=== PATIENT | female | born 1995 | race Caucasian/White ===

== ENCOUNTER 2017-06-14 20:35 | Emergency (ER) | payer BC ==
[2017-06-14 20:41] VITALS: BP 116/77; PULSE 80; RESP 18; TEMP 97.5; O2SAT 97
--- NOTE | 2017-06-14 20:51 | EDPHY ---
H & P Time Seen by Provider: 06/14/17 20:42 HPI/ROS: CHIEF COMPLAINT: Laceration right hand HISTORY OF PRESENT ILLNESS: 22-year-old female presents to the emergency department laceration to her right hand. Patient was at home just prior to arrival and was cleaning the inside of a glass out and the glass broke and she cut her right hand. She believes her tetanus shot is current. She complains of isolated pain to the medial aspect of her right hand. Her right 5th finger feels slightly "tingly". ROS: Denies retained foreign body, injury to the other fingers, pain in her right wrist. Past Medical/Surgical History: Negative Social History: Single Smoking Status: Never smoked Physical Exam: On examination patient has a 3 cm flap laceration to the medial aspect of her right palm. No evidence of tendon injury. No evidence of retained foreign body. Normal sensation to light touch with normal 2 point discrimination. Full flexion extension of her fingers. Strong radial pulse at the right wrist. Slow active bleeding noted. Constitutional: Initial Vital Signs Temperature (C) 36.4 C 06/14/17 20:39 Heart Rate 80 06/14/17 20:39 Respiratory Rate 18 06/14/17 20:39 Blood Pressure 116/77 06/14/17 20:39 O2 Sat (%) 97 06/14/17 20:39 O2 Delivery Mode Room Air Allergies/Adverse Reactions: No Known Allergies Allergy (Unverified 06/14/17 20:41) Home Medications: Medication Instructions Recorded NK [No Known Home Meds] 06/14/17 MDM/Departure - MDM Procedures: Laceration repair. Verbal consent was obtained from the patient. The 3 cm laceration on the right hand was anesthetized using 1% lidocaine with epinephrine. The wound was irrigated with saline, draped and explored to its base with a gloved finger. There were no deep structures involved. No tendon injury was identified. The wound was repaired with 5 0 Ethilon, 8 sutures. The wound repair was simple. The procedure was performed by myself. ED Course/Re-evaluation: 22-year-old female presents with laceration to her right hand. Wound was repaired, see procedure note. Tetanus shot is current. She was given wound care precautions. - Depart Disposition: Home, Routine, Self-Care Clinical Impression: Laceration of right hand Qualifiers: Encounter type: initial encounter Foreign body presence: without foreign body Qualified Code(s): S61.411A - Laceration without foreign body of right hand, initial encounter Condition: Good Instructions: Care For Your Stitches (ED), Laceration (ED), Acute Wounds (ED) Additional Instructions: Wound Care Follow-Up: Removal of sutures in 5 days. Suture removal is complimentary in uncomplicated cases. Infection or abnormal findings would require reevaluation by the MD. In that case, you may be billed. Ibuprofen 600 mg every 8 hr as needed for pain. Return to the emergency department if you developed any signs or symptoms of infection or any other concerns. Referrals: Kathy Leonard MD [Medical Doctor] - 2-3 days, if not improved (Primary care provider budget consultant)
== END 2017-06-14 21:31 | disposition home or self-care (01) ==
PROC: 0HQFXZZ Repair Right Hand Skin, External Approach (ICD-10-PCS; principal; 2017-06-14)
DX: S61.411A Laceration without foreign body of right hand, initial encounter (principal); W25.XXXA Contact with sharp glass, initial encounter; Y92.009 Unspecified place in unspecified non-institutional (private) residence as the place of occurrence of the external cause; Y93.G1 Activity, food preparation and clean up

== ENCOUNTER 2017-07-14 11:07 | Emergency (ER) | payer BC ==
[2017-07-14 11:14] VITALS: RESP 16
[2017-07-14] MEDS ORDERED: PROPARACAINE 0.5% 15 ML OPHT DROP OP ONE (13:33)
[2017-07-14] MEDS ORDERED: FLUORESCEIN SODIUM 1 MG STRIP OP ONE (13:34)
--- NOTE | 2017-07-14 13:48 | EDPHY ---
H & P Stated Complaint: l eye redness/pupil dilated Time Seen by Provider: 07/14/17 13:47 HPI/ROS: HPI: This is a 22-year-old female who presents with Chief Complaint: Left pupil dilatation Location: Left pupil Quality: Dilated Duration: This morning Signs and Symptoms: No decreased vision, no visual floaters, no headache, no injury, no eye pain, + redness Timing: Sudden Severity: Mild Context: Patient has not had an eye exam in several years presents with waking up this morning with left eye redness. She went to the store and purchase Opcon- A [id number] eyedrops for antihistamine and eye redness relief. She noted that her left pupil was more dilated than her right people. She went to urgent care who treated her for pinkeye in the left eye approximately 1 month ago with antibiotic drops. The drops resolved the problem. Today she went back to urgent care and due to the unequal pupils was sent to the emergency room for further evaluation. Patient drove herself to the emergency room. Denies vision changes/ocular pain/ocular discharge/weakness/paresthesias. Patient does not wear contact lens or glasses. Modifying Factors: None Comment: ROS: see HPI Constitutional: No fever, no chills, no weight loss Eyes: No blurred vision Respiratory: No shortness of breath, no cough Cardiovascular: No chest pain Gastrointestinal: No nausea, no vomiting, no diarrhea Genitourinary: No dysuria Extremities: No myalgias Neurologic: No weakness, no numbness Skin: No rashes Hematologic: No bruising, no bleeding MEDICAL/SURGICAL/SOCIAL HISTORY: Medical history: Generally healthy. Does not take any regular medications. Surgical history: Denies Social history: Employed locally General: Visual Acuity: noted from Nurse's notes. Pupils: Left pupil approximately 1 mm larger than right pupil and both equally reactive to light. EOMI. Lids: no edema or swelling Skin: no proptosis, no periorbital erythema or swelling, no vesicles Conjunctivae: Left eye is mildly injected, no discharge Cornea: exam with fluorescein shows shows no uptake Anterior chamber: normal, no hyphema or hypopyon Neuro: Cranial nerves 2-12 grossly intact. Speech clear. No focal deficits. Source: Patient Exam Limitations: No limitations - Personal History LMP (Females 10-55): IUD In Place Current Tetanus/Diphtheria Vaccine: Yes - Medical/Surgical History Hx Asthma: No Hx Chronic Respiratory Disease: No Hx Diabetes: No Hx Cardiac Disease: No Hx Renal Disease: No Hx Cirrhosis: No Hx Alcoholism: No Hx HIV/AIDS: No Hx Splenectomy or Spleen Trauma: No Other PMH: denies - Social History Smoking Status: Never smoked Constitutional: Initial Vital Signs Temperature (C) 36.6 C 07/14/17 11:13 Heart Rate 65 07/14/17 11:13 Respiratory Rate 16 07/14/17 11:13 Blood Pressure 107/74 07/14/17 11:13 O2 Sat (%) 97 07/14/17 11:13 O2 Delivery Mode Room Air Allergies/Adverse Reactions: No Known Allergies Allergy (Verified 07/14/17 11:11) Home Medications: Medication Instructions Recorded MIRENA 07/14/17 Opcon-A Eye Drops 07/14/17 Medical Decision Making ED Course/Re-evaluation: Given tobramycin drops for mild conjunctivitis No signs of corneal abrasion/iritis/uveitis/migraine Pupils are equal and reactive to light No neurological deficits ED decision to consult Ophthalmology. Spoke with Dr. Coombs who advised it may be related to the over counter eyedrops patient purchased this morning. He advised to send patient to his office and he will further evaluate her. This patient was seen under the supervision of my secondary supervising physician. I evaluated care for this patient independently. Discussed this patient with Dr. Morales who did not see the patient. Differential Diagnosis: Differential diagnosis includes but is not limited to conjunctivitis, cranial nerve palsy, optic lesion, medication side effect. - Data Points Medications Given: Discontinued Medications Proparacaine HCl (Alcaine 0.5%) 1 drops OP EDNOW ONE Stop: 07/14/17 13:34 Last Admin: 07/14/17 13:39 Dose: 1 drop Departure - Departure Disposition: Home, Routine, Self-Care Clinical Impression: Pupil dilation Conjunctivitis Qualifiers: Conjunctivitis type: acute Acute conjunctivitis type: unspecified Laterality: left Qualified Code(s): H10.32 - Unspecified acute conjunctivitis, left eye Condition: Good Instructions: Conjunctivitis (ED) Additional Instructions: Please leave the emergency room and go directly to ophthalmology for further evaluation. Stop using the [id number] eyedrops as this may be causing the dilatation of your left pupil. Referrals: Erik Coombs MD [Medical Doctor] - As per Instructions
[2017-07-14] MEDS ORDERED: TOBRAMYCIN 0.3% SOLN PREPACK OPHT.BTL TAKEHOME ONE (14:12)
[2017-07-14 14:41] VITALS: BP 110/74; PULSE 68; TEMP 98.6; O2SAT 98
== END 2017-07-14 14:42 | disposition home or self-care (01) ==
DX: H57.052 Tonic pupil, left eye (principal); H10.32 Unspecified acute conjunctivitis, left eye